=== PATIENT | female | born 1950 | race Caucasian/White ===

== ENCOUNTER → 2018-02-15 | Outpatient (CLI) | payer MEDICARE, OTHER ==
[~2018-02-15] MED LIST: HIZENTRA4 GM/20 ML IV; HYDROCHLOROTHIA25 M2 PO; LEVOTHYROXIN0.075 MG PO; MICARDIS HCT 41 EACH PO; NEXIUM40 MG PO; PROZAC20 MG PO; PULMICORT0.25 MG/3 INH; RESTASIS1 EACH OPHTHALMIC; SEREVENT DISKU50 MCG INH; SULFAZINE500 MG PO; TEMOVATE EMOLLI60 GM TOP; UNICOMPLEX M TA1 TA1 PO; VENTOLIN HFA 1818 GM INH; magnesium PO
[2018-02-15 09:12] LABS: HEMATOCRIT 32.9 % (37.0-47.0); MCH 29.9 pg (26.0-34.0); MCHC 33.4 g/dL (28.0-37.0); MCV 89.6 fL (80.0-100.0); MPV 8.5 fl. (7.2-11.1); RBC 3.67 mil/uL (4.20-5.00); RDW-CV 14.4 % (10.5-14.5); WBC 7.2 thou/uL (4.0-11.0)
== END ==
LOC: M.RAD 08:47
PROVIDERS: Internal Medicine
DX: R06.02 Shortness of breath (principal); R42 Dizziness and giddiness; R53.82 Chronic fatigue, unspecified

== ENCOUNTER → 2018-07-21 | Outpatient (CLI) | payer MEDICARE, OTHER | LOC: M.RAD 12:53 → M.ULTRA 12:53 | DX: Z12.31 Encounter for screening mammogram for malignant neoplasm of breast (principal); I73.9 Peripheral vascular disease, unspecified; I10 Essential (primary) hypertension; M19.90 Unspecified osteoarthritis, unspecified site; J45.909 Unspecified asthma, uncomplicated ==

== ENCOUNTER → 2018-08-04 | Outpatient (CLI) | payer MEDICARE, OTHER | LOC: M.ULTRA 08-01 10:30 | DX: N63.23 Unspecified lump in the left breast, lower outer quadrant (principal) ==

== ENCOUNTER → 2019-08-29 | Outpatient (CLI) | payer OTHER | LOC: M.RAD 10:35 → M.MRI 11:30 → M.RAD 13:30 | DX: M81.0 Age-related osteoporosis without current pathological fracture (principal); M43.16 Spondylolisthesis, lumbar region; M47.816 Spondylosis without myelopathy or radiculopathy, lumbar region; M51.27 Other intervertebral disc displacement, lumbosacral region; M48.07 Spinal stenosis, lumbosacral region; E28.39 Other primary ovarian failure; Z90.5 Acquired absence of kidney; Z88.8 Allergy status to other drugs, medicaments and biological substances ==